=== PATIENT | male | born 1950 | race Caucasian/White ===

== ENCOUNTER 2019-11-18 14:47 | Outpatient (RCR) | payer MEDICARE, OTHER | END 2019-11-24 | LOC: WCC 14:47 | PROVIDERS: ATTEND Family Medicine | DX: M27.8 Other specified diseases of jaws (principal); T66.XXXA Radiation sickness, unspecified, initial encounter; C14.8 Malignant neoplasm of overlapping sites of lip, oral cavity and pharynx; I10 Essential (primary) hypertension; I69.951 Hemiplegia and hemiparesis following unspecified cerebrovascular disease affecting right dominant side; Y84.2 Radiological procedure and radiotherapy as the cause of abnormal reaction of the patient, or of later complication, without mention of misadventure at the time of the procedure; Y84.8 Other medical procedures as the cause of abnormal reaction of the patient, or of later complication, without mention of misadventure at the time of the procedure ==

== ENCOUNTER → 2019-12-22 | Outpatient (CLI) | payer MEDICARE, OTHER ==
--- NOTE | 2019-12-22 12:57 | Diagnostic Imaging Report ---
EXAM: CHEST 2 VIEWS DATE: 12/22/2019 11:50 AM INDICATION: Preoperative evaluation COMPARISON: None FINDINGS/IMPRESSION: There are postsurgical changes from prior median sternotomy. The trachea is midline. There are increased bibasilar opacities suggestive of atelectasis/scarring. There is no evidence for large focal consolidation, pneumothorax, or significant pleural effusion, noting that the right costophrenic angle is excluded from the [id number]. The cardiac silhouette is not enlarged. Tortuosity noted of the thoracic aorta. There are degenerative changes of the thoracic spine. No acute osseous abnormality is identified. Signed by: Dr. Augustin Rapp MD on 12/22/2019 12:53 PM
== END ==
LOC: RAD 10:40
PROVIDERS: ATTEND Family Medicine
DX: Z01.810 Encounter for preprocedural cardiovascular examination (principal); Z01.811 Encounter for preprocedural respiratory examination
CPT/HCPCS: 71046; 93005; 93306

== ENCOUNTER 2019-12-23 12:20 | Outpatient (RCR) | payer OTHER | END 2019-12-24 | disposition still patient (30) | LOC: WCC 12:20 | PROVIDERS: ATTEND Family Medicine | DX: Y84.8 Other medical procedures as the cause of abnormal reaction of the patient, or of later complication, without mention of misadventure at the time of the procedure (principal); Y84.2 Radiological procedure and radiotherapy as the cause of abnormal reaction of the patient, or of later complication, without mention of misadventure at the time of the procedure; M27.8 Other specified diseases of jaws; T66.XXXA Radiation sickness, unspecified, initial encounter; C14.8 Malignant neoplasm of overlapping sites of lip, oral cavity and pharynx; I69.951 Hemiplegia and hemiparesis following unspecified cerebrovascular disease affecting right dominant side; I10 Essential (primary) hypertension; Z01.810 Encounter for preprocedural cardiovascular examination; Z01.811 Encounter for preprocedural respiratory examination ==

== ENCOUNTER 2020-01-22 12:59 | Outpatient (RCR) | payer OTHER | END 2020-01-24 | LOC: WCC 12:59 | PROVIDERS: ATTEND Family Medicine | DX: M27.8 Other specified diseases of jaws (principal); T66.XXXA Radiation sickness, unspecified, initial encounter; Y84.8 Other medical procedures as the cause of abnormal reaction of the patient, or of later complication, without mention of misadventure at the time of the procedure; Y84.2 Radiological procedure and radiotherapy as the cause of abnormal reaction of the patient, or of later complication, without mention of misadventure at the time of the procedure; C14.8 Malignant neoplasm of overlapping sites of lip, oral cavity and pharynx; I10 Essential (primary) hypertension; I69.951 Hemiplegia and hemiparesis following unspecified cerebrovascular disease affecting right dominant side; Z01.810 Encounter for preprocedural cardiovascular examination; Z01.811 Encounter for preprocedural respiratory examination | CPT/HCPCS: G0277 ×13 ==

== ENCOUNTER 2020-02-02 12:43 | Outpatient (RCR) | payer MEDICARE, OTHER | END 2020-02-23 | LOC: WCC 12:43 | PROVIDERS: ATTEND Family Medicine | DX: M27.8 Other specified diseases of jaws (principal); T66.XXXA Radiation sickness, unspecified, initial encounter; Y84.2 Radiological procedure and radiotherapy as the cause of abnormal reaction of the patient, or of later complication, without mention of misadventure at the time of the procedure; Y84.8 Other medical procedures as the cause of abnormal reaction of the patient, or of later complication, without mention of misadventure at the time of the procedure; C14.8 Malignant neoplasm of overlapping sites of lip, oral cavity and pharynx; I10 Essential (primary) hypertension; I69.951 Hemiplegia and hemiparesis following unspecified cerebrovascular disease affecting right dominant side; Z01.810 Encounter for preprocedural cardiovascular examination; Z01.811 Encounter for preprocedural respiratory examination | CPT/HCPCS: 99211; G0277 ×7 ==

== ENCOUNTER → 2020-06-02 | Outpatient (CLI) | payer MEDICARE, OTHER ==
--- NOTE | 2020-06-02 10:34 | Diagnostic Imaging Report ---
Exam: CHEST 2 VIEWS Date: 06/02/2020 10:29 AM INDICATION: ^[id number] ^1000 ^ENCOUNTER FOR PREPROCEDURAL RESP EXAM Comparison: 12/22/2019 FINDINGS: Lines/Tubes:Stable midline sternotomy changes. Lungs:Stable basilar areas of scarring and atelectasis. Stable chronic blunting of the costophrenic angles. Negative for focal consolidation, pneumothorax or significant pleural effusion. Lungs are hyperexpanded. Heart/Mediastinum:Cardiomediastinal silhouette and pulmonary vascularity are within normal limits. Bones/Soft Tissues: No acute osseous abnormality. Moderate multilevel degenerative changes of the thoracic spine are noted. Upper abdomen: Unremarkable. IMPRESSION: Stable exam without acute intrathoracic process. Stable hyperexpansion with basilar scarring suggestive of COPD changes. Signed by: Gustavo Lara MD on 06/02/2020 10:30 AM
== END ==
LOC: RAD 09:06
PROVIDERS: ATTEND Family Medicine
DX: Z01.810 Encounter for preprocedural cardiovascular examination (principal); Z01.811 Encounter for preprocedural respiratory examination
CPT/HCPCS: 71046; 93005; 93306

== ENCOUNTER 2020-06-24 11:06 | Outpatient (RCR) | payer MEDICARE, OTHER | END 2020-06-25 | LOC: WCC 11:06 | PROVIDERS: ATTEND Family Medicine | DX: M27.8 Other specified diseases of jaws (principal); T66.XXXA Radiation sickness, unspecified, initial encounter; Y84.2 Radiological procedure and radiotherapy as the cause of abnormal reaction of the patient, or of later complication, without mention of misadventure at the time of the procedure; Y84.8 Other medical procedures as the cause of abnormal reaction of the patient, or of later complication, without mention of misadventure at the time of the procedure; C14.8 Malignant neoplasm of overlapping sites of lip, oral cavity and pharynx; I69.951 Hemiplegia and hemiparesis following unspecified cerebrovascular disease affecting right dominant side; I10 Essential (primary) hypertension; Z01.810 Encounter for preprocedural cardiovascular examination; Z01.811 Encounter for preprocedural respiratory examination | CPT/HCPCS: 99213; G0277 ×9 ==

== ENCOUNTER 2020-07-15 13:34 | Outpatient (RCR) | payer MEDICARE, OTHER | END 2020-07-25 | LOC: WCC 13:34 | PROVIDERS: ATTEND Family Medicine | DX: M27.8 Other specified diseases of jaws (principal); T66.XXXA Radiation sickness, unspecified, initial encounter; C14.8 Malignant neoplasm of overlapping sites of lip, oral cavity and pharynx; Y84.2 Radiological procedure and radiotherapy as the cause of abnormal reaction of the patient, or of later complication, without mention of misadventure at the time of the procedure; Y84.8 Other medical procedures as the cause of abnormal reaction of the patient, or of later complication, without mention of misadventure at the time of the procedure; I10 Essential (primary) hypertension; I69.951 Hemiplegia and hemiparesis following unspecified cerebrovascular disease affecting right dominant side; Z01.810 Encounter for preprocedural cardiovascular examination; Z01.811 Encounter for preprocedural respiratory examination | CPT/HCPCS: 99212; G0277 ×11 ==